=== PATIENT | female | born 1965 | race American Indian/Alaskan Native ===

== ENCOUNTER 2021-03-28 11:37 | Emergency (ER) | payer OTHER ==
[2021-03-28 12:23] VITALS: BP 148/83
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
== END 2021-03-28 13:00 | disposition home or self-care (01) ==
LOC: ED 11:37
DX: S52.692D Other fracture of lower end of left ulna, subsequent encounter for closed fracture with routine healing (principal); S52.502D Unspecified fracture of the lower end of left radius, subsequent encounter for closed fracture with routine healing; V87.7XXD Person injured in collision between other specified motor vehicles (traffic), subsequent encounter
CPT/HCPCS: 99282; 99283

== ENCOUNTER 2021-05-04 09:18 | Outpatient (CLI) | payer OTHER ==
--- NOTE | 2021-05-04 10:44 | XRay Report ---
LEFT WRIST 2 VIEW(S) INDICATION / CLINICAL INFORMATION: UNSPECIFIED FRACTUREOF THE LOWER END OF LEFT RADIUS COMPARISON: 03/19/2021 FINDINGS: BONES / JOINT(S): Redemonstrated fractures through the distal radial metaphysis and distal ulnar meta physis. The alignment is improved. There is slight increased sclerosis suggesting healing. No signifi cant arthritis. SOFT TISSUES: No significant abnormality. ADDITIONAL FINDINGS: None. Signer Name: Eriberto Gonzales DO Signed: 05/04/2021 10:38 AM Workstation Name: [id number]
== END 2021-05-04 09:19 | disposition home or self-care (01) ==
LOC: XRAY 09:18
PROVIDERS: ATTEND Orthopaedic Surgery
DX: S52.502A Unspecified fracture of the lower end of left radius, initial encounter for closed fracture (principal); S52.692A Other fracture of lower end of left ulna, initial encounter for closed fracture; X58.XXXA Exposure to other specified factors, initial encounter; Y93.89 Activity, other specified; Y92.89 Other specified places as the place of occurrence of the external cause; Y99.8 Other external cause status

== ENCOUNTER 2021-06-28 10:05 | Outpatient (CLI) | payer OTHER ==
--- NOTE | 2021-06-28 10:47 | XRay Report ---
Left wrist 2 views INDICATION: Fracture FINDINGS: Comminuted fracture distal ulna. There may be some mild surrounding callus formation howeve r no complete union and healing. Fracture deformity within the distal radius is also noted. Very mild sclerosis in the distal radius from healing. Diffuse soft tissue swelling throughout the wrist. Signer Name: Ishmael Guerin MD Signed: 06/28/2021 10:43 AM Workstation Name: [id number]
== END 2021-06-28 10:06 | disposition home or self-care (01) ==
LOC: XRAY 10:05
PROVIDERS: ATTEND Orthopaedic Surgery
DX: S52.502A Unspecified fracture of the lower end of left radius, initial encounter for closed fracture (principal); S52.602A Unspecified fracture of lower end of left ulna, initial encounter for closed fracture; M79.89 Other specified soft tissue disorders; X58.XXXA Exposure to other specified factors, initial encounter; Y93.89 Activity, other specified; Y92.89 Other specified places as the place of occurrence of the external cause; Y99.8 Other external cause status